=== PATIENT | female | born 1945 | race Caucasian/White ===

== ENCOUNTER 2017-03-13 13:42 | Inpatient (IN) ==
[2017-03-13] MEDS ORDERED: ONDANSETRON 4 MG/2 ML VIAL IV STA (14:27)
[2017-03-13] MEDS ORDERED: ALUM/MAG/SIMETH/LIDO VISC 1:1 30 ML BOTTLE PO STA (14:27)
[2017-03-13] MEDS ORDERED: LACTATED RINGERS 1,000 ML IV ONE ×2 (14:27→15:55)
[2017-03-13] MEDS ORDERED: PANTOPRAZOLE 40 MG VIAL IV STA (14:27)
[2017-03-13] MEDS ORDERED: PANTOPRAZOLE 40 MG VIAL IV ONE (14:53)
[2017-03-13] MEDS ORDERED: ONDANSETRON 4 MG/2 ML VIAL ONE (14:53)
[2017-03-13] MEDS ORDERED: ALUM/MAG/SIMETH/LIDO VISC 1:1 30 ML BOTTLE PO ONE (14:54)
[2017-03-13 15:01] LABS: Basophils % 0.1 % (0.0-0.8); Eosinophils % 0.1 % (0.00-10.9); Hematocrit 30.1 VOL% (35.7-47.0); Hemoglobin 9.7 GM/DL (12.0-16.0); Immature Granulocytes % 5.3 %; Immature Granulocytes Absolute 0.77 #; Lymphocytes # 0.1 10*3/uL (1.4-4.0); Lymphocytes % 0.9 % (21.3-54.2); Mean Corpuscular HGB Conc 32.2 GM/DL (32-36); Mean Corpuscular Hemoglobin 28 PG (27-34); Mean Corpuscular Volume 85.5 FL (87-102); Mean Platelet Volume 9.7 FL (9.6-12.0); Monocytes # 0.6 10*3/uL (0.11-0.8); Monocytes % 4.2 % (1.7-12.7); Neutrophils # 12.9 10*3/uL (1.4-7.4); Neutrophils % 89.4 % (38.7-73.9); Platelet Count 109 T/CUMM (130-400); Red Blood Count 3.52 MC/CUMM (3.8-5.5); Red Cell Distribution Width 15.2 % (9.3-17.3); White Blood Count 14.4 T/CUMM (4-12)
[2017-03-13 15:23] LABS: Ammonia < 10 UMOL/L (11-32)
[2017-03-13 15:27] LABS: Lactic Acid 3.8 MMOL/L (0.4-2.0)
[2017-03-13 15:30] LABS: Alanine Aminotransferase 12 U/L (13-56); Albumin 2.3 G/DL (3.4-5.0); Alkaline Phosphatase 82 U/L (45-117); Amylase 27 U/L (25-115); Aspartate Amino Transferase 13 U/L (0-37); Blood Urea Nitrogen 23 MG/DL (7-18); Glucose 114 MG/DL (74-106); Magnesium 0.9 MG/DL (1.8-2.4); Osmolality,Calculated 266.7 MOS/KG (273-304); Sodium 131 MMOL/L (136-145); Total Protein 5.4 G/DL (6.4-8.3); Troponin I Only < 0.015 NG/ML (0.00-0.045)
[2017-03-13 16:25] LABS: Apearance,Urine CLOUDY (Clear); Blood, Urine Negative (Negative); Glucose,Urine (UA) Negative (Negative); Ketones,Urine Negative (Negative); Mucus,Urine Occasional /LPF (Occasional); Nitrite,Urine Negative (Negative); Protein,Urine 100 MG/DL; RBC,Urine 4 /HPF (0-4); Squamous Epithelial Cell,Urine Occasional /HPF (0-10); Urine Specific Gravity 1.019 (1.001-1.035); WBC,Urine 4 /HPF (0-6)
[2017-03-13 16:28] LABS: Bilirubin,Urine Small mg/dL (Negative); Urine Color Yellow (Yellow)
[2017-03-13] MEDS ORDERED: MAGNESIUM SULF RIDER 2 GM in PREMIX 1 EACH IV STA (16:34)
[2017-03-13] MEDS ORDERED: SODIUM CHLORIDE 0.9% 2,100 ML IV ONE (16:37)
[2017-03-13] MEDS ORDERED: MAGNESIUM SULF RIDER 50 ML IV ONE (16:42)
[2017-03-13] MEDS ORDERED: cefTRIAXone 1,000 MG in SYRINGE 1 EACH IV SCH (17:00)
[2017-03-13 17:06] LABS: INR 1.3; PT Patient Result 13.4 SECS; Partial Thromboplastin Time 33.8 SECS (0-40)
[2017-03-13] MEDS ORDERED: MORPHINE 2 MG/1 ML SYRINGE IV PRN (17:21)
[2017-03-13] MEDS ORDERED: ACETAMINOPHEN 325 MG TABLET PO PRN (17:21)
[2017-03-13] MEDS ORDERED: GLUCAGON 1 MG VIAL IM PRN (17:21)
[2017-03-13] MEDS ORDERED: DEXTROSE 50% 25 GM/50 ML VIAL IV PRN (17:21)
[2017-03-13] MEDS ORDERED: ONDANSETRON 4 MG/2 ML VIAL IV PRN (17:21)
[2017-03-13] MEDS ORDERED: ZALEPLON 5 MG CAPSULE PO PRN (17:23)
[2017-03-13] MEDS ORDERED: ALBUTEROL/IPRATROPIUM 3 ML NEB RESP TX PRN (17:27)
[2017-03-13] MEDS ORDERED: AZITHROMYCIN INJ 500 MG in SODIUM CHLORIDE 0.9% 250 ML IV SCH (17:30)
[2017-03-13] MEDS ORDERED: AZITHROMYCIN 500 MG VIAL IV ONE (18:47)
[2017-03-13] MEDS ORDERED: PIPERACILLIN/TAZOBACTAM 3,375 MG VIAL IV ONE (18:47)
[2017-03-13] MEDS ORDERED: cefTRIAXone 1,000 MG VIAL ONE (18:47)
[2017-03-13 19:05] LABS: Band Neutrophils 6 % (0-10); Burr Cells Few; Hypochromasia Slight; Lymphocytes 4 % (20-55); Platelet Estimate Decreased; Poikilocytosis Slight; Segmented Neutrophils 87 % (50-85); Total Cells Counted 100
[2017-03-13] MEDS: SODIUM CHLORIDE 0.9% 1,000 ML IV SCH (19:31)
[2017-03-13] MEDS: PIPERACILLIN/TAZOBACTAM 3,375 MG in SODIUM CHLORIDE 0.9% 100 ML IV SCH (19:31)
[2017-03-13] MEDS: ENOXAPARIN 30 MG/0.3 ML SYRINGE SUBCUT SCH ×2 (19:35→21:03)
[2017-03-13] MEDS: methylPREDNISolone SOD SUC 40 MG/1 ML VIAL IV SCH ×2 (19:37→20:34)
[2017-03-13] MEDS: ALBUTEROL/IPRATROPIUM 3 ML NEB RESP TX SCH (20:55)
[2017-03-13] MEDS ORDERED: DILTIAZEM 90 MG TABLET PO SCH (21:00)
[2017-03-13] MEDS ORDERED: traZODone 50 MG TABLET PO SCH (21:00)
[2017-03-13] MEDS ORDERED: ATENOLOL 50 MG TABLET PO SCH (21:00)
[2017-03-13] MEDS ORDERED: ENOXAPARIN 30 MG/0.3 ML SYRINGE ONE (21:00)
[2017-03-13] MEDS ORDERED: guaiFENesin/DM ER 600-30 MG TABLET PO SCH (21:00)
[2017-03-13] MEDS ORDERED: guaiFENesin/DM ER 600-30 MG TABLET PO ONE (21:04)
[2017-03-13] MEDS ORDERED: ZALEPLON 5 MG CAPSULE ONE (22:14)
[2017-03-13] MEDS ORDERED: MORPHINE 10 MG/1 ML VIAL ONE (23:06)
[2017-03-14] MEDS ORDERED: ZOLPIDEM 5 MG TABLET PO PRN (00:27)
[2017-03-14] MEDS: ALBUTEROL/IPRATROPIUM 3 ML NEB RESP TX SCH ×3 (00:35→14:30)
[2017-03-14] MEDS ORDERED: EPINEPHrine 1 MG/ML VIAL ONE (00:58)
[2017-03-14] MEDS ORDERED: FUROSEMIDE 40 MG/4 ML VIAL IV ONE ×3 (01:15→04:26)
[2017-03-14] MEDS ORDERED: FUROSEMIDE 100 MG/10 ML VIAL ONE (01:17)
[2017-03-14 01:23] LABS: ABG Base Excess -14.5 MMOL/L (-2.5-2.5); ABG HCO3 13.2 MMOL/L (20-26); ABG Oxygen Saturation 96.3 % (95-100); ABG TCO2 20.2 MMOL/L (23-27)
[2017-03-14 01:26] LABS: ABG PH 6.927 (7.35-7.45)
[2017-03-14 01:27] LABS: ABG PCO2 95.8 MM HG (35-48)
[2017-03-14] MEDS ORDERED: SODIUM BICARBONATE 50 MEQ/50 ML SYRINGE IV ONE (01:28)
[2017-03-14] MEDS ORDERED: PROPOFOL 1,000 MG/100 ML BOTTLE IV SCH (01:30)
[2017-03-14] MEDS ORDERED: fentaNYL INJ 1,250 MCG in SODIUM CHLORIDE 0.9% 225 ML IV SCH ×2 (01:30→04:30)
[2017-03-14] MEDS ORDERED: PROPOFOL 1,000 MG/100 ML BOTTLE IV ONE (01:56)
[2017-03-14 02:30] LABS: Basophils % 0.5 % (0.0-0.8); Eosinophils % 0.5 % (0.00-10.9); Hematocrit 29.2 VOL% (35.7-47.0); Hemoglobin 9.1 GM/DL (12.0-16.0); Immature Granulocytes % 10.2 %; Immature Granulocytes Absolute 0.41 #; Lymphocytes # 0.2 10*3/uL (1.4-4.0); Mean Corpuscular HGB Conc 31.2 GM/DL (32-36); Mean Corpuscular Hemoglobin 28 PG (27-34); Mean Corpuscular Volume 88.5 FL (87-102); Mean Platelet Volume 9.6 FL (9.6-12.0); Monocytes # 0.2 10*3/uL (0.11-0.8); Monocytes % 3.7 % (1.7-12.7); Neutrophils # 3.2 10*3/uL (1.4-7.4); Neutrophils % 80.1 % (38.7-73.9); Platelet Count 106 T/CUMM (130-400); Red Cell Distribution Width 15.3 % (9.3-17.3)
[2017-03-14 03:00] LABS: Lactic Acid 9.1 MMOL/L (0.4-2.0)
[2017-03-14] MEDS: SODIUM CHLORIDE 0.9% 1,000 ML IV SCH ×2 (03:14→10:16)
[2017-03-14] MEDS ORDERED: VANCOMYCIN INJ 1,000 MG in SODIUM CHLORIDE 0.9% 250 ML IV SCH (03:30)
[2017-03-14] MEDS ORDERED: NOREPINEPHRINE 4 MG/4 ML VIAL IV ONE (03:42)
[2017-03-14 03:44] LABS: Band Neutrophils 27 % (0-10); Eosinophils 1 % (0-10); Lymphocytes 1 % (20-55); Myelocytes 15 %; Segmented Neutrophils 53 % (50-85); Total Cells Counted 100
[2017-03-14 03:45] LABS: Anisocytosis 1+; Platelet Estimate Adequate
[2017-03-14 03:51] LABS: Alanine Aminotransferase 14 U/L (13-56); Albumin 1.7 G/DL (3.4-5.0); Alkaline Phosphatase 67 U/L (45-117); Aspartate Amino Transferase 23 U/L (0-37); Blood Urea Nitrogen 25 MG/DL (7-18); Calcium 7.9 MG/DL (8.5-10.1); Glucose 133 MG/DL (74-106); Osmolality,Calculated 278.8 MOS/KG (273-304); Potassium 3.9 MMOL/L (3.5-5.1); Sodium 137 MMOL/L (136-145); Total Protein 4.3 G/DL (6.4-8.3)
[2017-03-14 04:02] LABS: ABG Base Excess -7.5 MMOL/L (-2.5-2.5); ABG HCO3 18.3 MMOL/L (20-26); ABG Oxygen Saturation 97.7 % (95-100); ABG PCO2 66.1 MM HG (35-48); ABG TCO2 21.3 MMOL/L (23-27)
[2017-03-14 04:04] LABS: ABG PH 7.141 (7.35-7.45)
[2017-03-14] MEDS: NOREPINEPHRINE 8 MG in SODIUM CHLORIDE 0.9% 242 ML IV SCH ×4 (04:04→12:53)
[2017-03-14] MEDS ORDERED: CALCIUM GLUCONATE 1,000 MG in SODIUM CHLORIDE 0.9% 100 ML IV ONE (04:10)
[2017-03-14] MEDS: PHENYLEPHRINE DRIP 40 MG/250 ML PREMIX IV SCH ×5 (05:20→13:00)
[2017-03-14] MEDS ORDERED: SODIUM CHLORIDE 0.9% 500 ML IV ONE (05:50)
[2017-03-14] MEDS ORDERED: BUDESONIDE 0.5 MG/2 ML NEB RESP TX SCH (07:00)
[2017-03-14 07:15] LABS: Lactic Acid 6.2 MMOL/L (0.4-2.0)
[2017-03-14] MEDS: PIPERACILLIN/TAZOBACTAM 3,375 MG in SODIUM CHLORIDE 0.9% 100 ML IV SCH (07:27)
[2017-03-14] MEDS ORDERED: PIPERACILLIN/TAZOBACTAM 3,375 MG in SODIUM CHLORIDE 0.9% 100 ML IV SCH (08:00)
[2017-03-14] MEDS: methylPREDNISolone SOD SUC 40 MG/1 ML VIAL IV SCH (08:56)
[2017-03-14] MEDS ORDERED: PARoxetine 20 MG TABLET PO SCH (09:00)
[2017-03-14] MEDS ORDERED: MULTIVITAMIN (CENTRUM) TABLET PO SCH (09:00)
[2017-03-14] MEDS ORDERED: MULTIVITAMIN (BEROCCA) TABLET PO SCH (09:00)
[2017-03-14] MEDS ORDERED: ASPIRIN EC 81 MG TABLET PO SCH (09:00)
[2017-03-14] MEDS ORDERED: PANTOPRAZOLE 40 MG VIAL IV SCH (09:00)
[2017-03-14] MEDS ORDERED: PANTOPRAZOLE 40 MG TABLET PO SCH (09:00)
[2017-03-14 13:21] VITALS: BP 114/35
[2017-03-14] MEDS ORDERED: MORPHINE 10 MG/1 ML VIAL IV PRN (14:30)
[2017-03-14] MEDS ORDERED: methylPREDNISolone SOD SUC 40 MG/1 ML VIAL IV SCH (15:00)
== END 2017-03-14 13:35 | disposition expired | DRG 871 ==
LOC: EDBD → EDUNIT# → N.ED 13:42 → N.EDINP 16:53 → N.CC 03-14 02:58